=== PATIENT | female | born 1935 | race Caucasian/White ===

== ENCOUNTER 2017-05-20 10:09 | Inpatient (IN) | payer MEDICARE ==
[~2017-05-20] VITALS: Ht 157.5 cm; Wt 75.6 kg
[2017-05-20] MEDS ORDERED: METHYLPREDNISOLONE SOD SUCC 125MG/2ML VIAL ONE (10:26)
[2017-05-20 10:30] LABS: BASOPHILS % (AUTO) 0.4 % (0.0-5.0); EOSINOPHILS % (AUTO) 0.2 % (0.0-8.0); HEMATOCRIT 38.4 % (36-48); LYMPHOCYTES % (AUTO) 4.1 % (21.0-51.0); MEAN CORPUSCULAR HEMOGLOBIN 26.6 pg (27.0-33.0); MEAN CORPUSCULAR HGB CONC 32.6 g/dL (32.0-36.0); MEAN CORPUSCULAR VOLUME 81.8 fL (79-99); MONOCYTES % (AUTO) 7.4 % (3.0-13.0); NEUTROPHILS % (AUTO) 87.9 % (40.0-77.0); PLATELET COUNT (AUTO) 335 K/uL (130-400); RED BLOOD CELL COUNT(AUTO) 4.69 MIL/uL (4.00-5.50); RED CELL DISTRIBUTION WIDTH 14.8 % (11.0-15.5); WHITE BLOOD COUNT (AUTO) 10.6 K/uL (4.8-10.8)
[2017-05-20] MEDS ORDERED: IPRATROPIUM/ALBUTEROL SULFATE 3 ML SOLUTION IH ONE (10:35)
[2017-05-20 10:40] LABS: POTASSIUM 4.1 mmol/L (3.5-5.1)
[2017-05-20 10:45] LABS: BILIRUBIN,TOTAL 0.6 mg/dL (0.2-1.0); TOTAL PROTEIN, SERUM 7.6 g/dL (6.0-8.3)
[2017-05-20] MEDS ORDERED: AZITHROMYCIN 500MG+NS 250ML 250 ML IV ONE (11:18)
[2017-05-20] MEDS ORDERED: CEFTRIAXONE SODIUM 1 GM ONE (11:19)
[2017-05-20 11:27] LABS: INR 1.09 (0.85-1.15); PROTHROMBIN TIME 11.4 SEC (9.6-11.6)
[2017-05-20 12:32] LABS: ABG BASE EXCESS -0.4 mmol/L (-2.0-3.0); ABG HCO3 25.3 mmol/L (21.0-28.0); ABG OXYGEN SATURATION 95.2 % (95.0-99.0); ABG PCO2 45 mmHg (32-45)
[2017-05-20 16:05] VITALS: BP 132/60
[2017-05-20] MEDS ORDERED: POTASSIUM CHLORIDE 10% ELIXIR 20 MEQ/15 ML UDCUP PO PRN (17:45)
[2017-05-20] MEDS ORDERED: POTASSIUM CHLORIDE 20 MEQ ERTAB PO PRN (17:45)
[2017-05-20] MEDS ORDERED: POTASSIUM CHLORIDE 20MEQ/100ML 100 ML IV PRN (17:45)
[2017-05-20] MEDS ORDERED: LIDOCAINE HCL-MPF 1% 2ML VIAL IVP PRN (17:45)
[2017-05-20] MEDS ORDERED: AZTREONAM 1 GM in SODIUM CHLORIDE 0.9% 50 ML IV SCH (17:45)
[2017-05-20 18:41] VITALS: BP 120/58
[2017-05-20 18:51] VITALS: BP 136/63
[2017-05-20] MEDS ORDERED: PHARMACY COMMUNICATION MISC SCH (19:15)
[2017-05-20 19:25] VITALS: BP 115/55
[2017-05-20] MEDS: IPRATROPIUM/ALBUTEROL SULFATE 3 ML SOLUTION IH SCH ×2 (20:38→23:38)
[2017-05-20] MEDS ORDERED: SODIUM CHLORIDE 0.9% 250 ML IV ONE (21:35)
[2017-05-20] MEDS: METHYLPREDNISOLONE SOD SUCC 40MG/ML 1ML IVP SCH (22:02)
[2017-05-20] MEDS: OSELTAMIVIR PHOSPHATE 75 MG CAP PO SCH (22:03)
[2017-05-20] MEDS: AZTREONAM 1 GM VIAL IVP SCH (22:04)
[2017-05-20] MEDS: INSULIN HUMULIN R 100 UNIT/ML 3ML SQ SCH (22:17)
[2017-05-20] MEDS: DOXYCYCLINE 100MG+NS 250ML 250 ML IV SCH (23:03)
[2017-05-20 23:53] VITALS: BP 123/60
[2017-05-21 03:44] VITALS: BP 120/62
[2017-05-21 04:03] LABS: HEMATOCRIT 33.2 % (36-48); MEAN CORPUSCULAR HEMOGLOBIN 26.4 pg (27.0-33.0); MEAN CORPUSCULAR VOLUME 80.1 fL (79-99); PLATELET COUNT (AUTO) 318 K/uL (130-400); RED BLOOD CELL COUNT(AUTO) 4.15 MIL/uL (4.00-5.50); RED CELL DISTRIBUTION WIDTH 14.8 % (11.0-15.5); WHITE BLOOD COUNT (AUTO) 11.1 K/uL (4.8-10.8)
[2017-05-21 04:03] LABS: ABG BASE EXCESS 1.9 mmol/L (-2.0-3.0); ABG HCO3 28.5 mmol/L (21.0-28.0); ABG PCO2 52 mmHg (32-45)
[2017-05-21 04:17] LABS: CREATININE 1.1 mg/dL (0.5-1.5); MAGNESIUM 2.1 mg/dL (1.80-2.40); PHOSPHORUS 2.8 mg/dL (2.5-4.9); POTASSIUM 3.5 mmol/L (3.5-5.1)
[2017-05-21] MEDS: METHYLPREDNISOLONE SOD SUCC 40MG/ML 1ML IVP SCH ×3 (05:37→20:05)
[2017-05-21] MEDS: IPRATROPIUM/ALBUTEROL SULFATE 3 ML SOLUTION IH SCH ×4 (05:57→23:49)
[2017-05-21] MEDS: INSULIN HUMULIN R 100 UNIT/ML 3ML SQ SCH ×4 (06:15→21:53)
[2017-05-21] MEDS ORDERED: POTASSIUM CHLORIDE 10 MEQ/TAB.SA PO ONE ×2 (06:32→06:33)
[2017-05-21 07:00] VITALS: BP 133/70
[2017-05-21] MEDS: AZTREONAM 1 GM VIAL IVP SCH ×2 (09:17→20:05)
[2017-05-21] MEDS: DOXYCYCLINE 100MG+NS 250ML 250 ML IV SCH ×2 (09:17→20:05)
[2017-05-21] MEDS: OSELTAMIVIR PHOSPHATE 75 MG CAP PO SCH ×2 (09:17→20:05)
[2017-05-21] MEDS: FAMOTIDINE 20MG TAB 20 MG TAB PO SCH (09:17)
[2017-05-21] MEDS: ENOXAPARIN SODIUM 30 MG/0.3 ML SQ SCH (09:18)
[2017-05-21 11:00] VITALS: BP 132/68
[2017-05-21] MEDS ORDERED: CEFTRIAXONE 1GM/D5W 50ML 50 ML IV SCH (11:00)
[2017-05-21] MEDS ORDERED: AZITHROMYCIN 500MG+NS 250ML 250 ML IV SCH (12:00)
[2017-05-21 16:00] VITALS: BP 127/70
[2017-05-21 19:24] VITALS: BP 145/71
[2017-05-21 23:30] VITALS: BP 120/59
[2017-05-22] VITALS (7 sets, daily range): BP systolic 110–169; BP diastolic 47–78
[2017-05-22] MEDS: METHYLPREDNISOLONE SOD SUCC 40MG/ML 1ML IVP SCH ×3 (05:12→20:28)
[2017-05-22] MEDS: IPRATROPIUM/ALBUTEROL SULFATE 3 ML SOLUTION IH SCH ×4 (06:03→23:50)
[2017-05-22] MEDS: INSULIN HUMULIN R 100 UNIT/ML 3ML SQ SCH ×4 (06:40→21:00)
[2017-05-22] MEDS: DOXYCYCLINE 100MG+NS 250ML 250 ML IV SCH ×2 (09:34→20:27)
[2017-05-22] MEDS: OSELTAMIVIR PHOSPHATE 75 MG CAP PO SCH ×2 (09:34→20:28)
[2017-05-22] MEDS: AZTREONAM 1 GM VIAL IVP SCH ×2 (09:34→20:28)
[2017-05-22] MEDS: FAMOTIDINE 20MG TAB 20 MG TAB PO SCH (09:35)
[2017-05-22] MEDS: ENOXAPARIN SODIUM 30 MG/0.3 ML SQ SCH (09:35)
[2017-05-22] MEDS ORDERED: CETI10TA86 PO (16:28)
[2017-05-22] MEDS ORDERED: MAGN250T39 PO (16:28)
[2017-05-22] MEDS ORDERED: FLUT15.88 NS (16:28)
[2017-05-22] MEDS ORDERED: CHOL50004 PO (16:28)
[2017-05-22] MEDS ORDERED: PRED20TA3 PO (16:28)
[2017-05-22] MEDS ORDERED: METF-526 PO (16:28)
[2017-05-22] MEDS ORDERED: UBID100C45 PO (16:28)
[2017-05-22] MEDS ORDERED: HYDRALAZINE HCL 20 MG/ML VIAL IV PRN (22:45)
[2017-05-23 03:30] VITALS: BP 153/70
[2017-05-23] MEDS: INSULIN HUMULIN R 100 UNIT/ML 3ML SQ SCH ×3 (06:28→18:28)
[2017-05-23] MEDS: METHYLPREDNISOLONE SOD SUCC 40MG/ML 1ML IVP SCH ×2 (06:30→12:40)
[2017-05-23] MEDS: IPRATROPIUM/ALBUTEROL SULFATE 3 ML SOLUTION IH SCH ×4 (06:42→23:39)
[2017-05-23 07:00] VITALS: BP 151/73
[2017-05-23] MEDS: FAMOTIDINE 20MG TAB 20 MG TAB PO SCH (08:24)
[2017-05-23] MEDS: ENOXAPARIN SODIUM 30 MG/0.3 ML SQ SCH (08:24)
[2017-05-23] MEDS: OSELTAMIVIR PHOSPHATE 75 MG CAP PO SCH (08:24)
[2017-05-23] MEDS: DOXYCYCLINE 100MG+NS 250ML 250 ML IV SCH (08:24)
[2017-05-23] MEDS: AZTREONAM 1 GM VIAL IVP SCH (08:24)
[2017-05-23 11:44] VITALS: BP 161/84
[2017-05-23 16:00] VITALS: BP 163/89
[2017-05-23 20:00] VITALS: BP 164/84
[2017-05-23 23:52] VITALS: BP 152/77
[2017-05-24 04:00] VITALS: BP 160/84
[2017-05-24] MEDS: DOXYCYCLINE 100MG+NS 250ML 250 ML IV SCH ×2 (05:23→08:39)
[2017-05-24] MEDS: METHYLPREDNISOLONE SOD SUCC 40MG/ML 1ML IVP SCH ×2 (05:24→05:56)
[2017-05-24] MEDS: OSELTAMIVIR PHOSPHATE 75 MG CAP PO SCH ×3 (05:24→20:38)
[2017-05-24] MEDS: AZTREONAM 1 GM VIAL IVP SCH ×2 (05:24→08:56)
[2017-05-24] MEDS: INSULIN HUMULIN R 100 UNIT/ML 3ML SQ SCH ×5 (05:31→21:09)
[2017-05-24] MEDS: IPRATROPIUM/ALBUTEROL SULFATE 3 ML SOLUTION IH SCH ×3 (06:12→17:12)
[2017-05-24] MEDS ORDERED: BENZOCAINE/MENTH/CETYLPYRD CL 1 EACH LOZENGE MM PRN (06:45)
[2017-05-24 07:05] VITALS: BP 154/79
[2017-05-24] MEDS: FAMOTIDINE 20MG TAB 20 MG TAB PO SCH (08:39)
[2017-05-24] MEDS: ENOXAPARIN SODIUM 30 MG/0.3 ML SQ SCH (08:39)
[2017-05-24] MEDS ORDERED: PREDNISONE 10 MG TABLET PO SCH (10:45)
[2017-05-24] MEDS ORDERED: DOXYCYCLINE HYCLATE 100 MG TABLET PO SCH (10:45)
[2017-05-24 11:35] VITALS: BP 175/82
[2017-05-24] MEDS: ALBUTEROL SULFATE 0.083% 2.5 MG/3 ML INH IH SCH (11:42)
[2017-05-24] MEDS: IPRATROPIUM 0.5 MG/2.5 ML INH IH SCH ×2 (11:42→17:13)
[2017-05-24 16:14] VITALS: BP 168/90
[2017-05-24] MEDS: BUDESONIDE 0.5 MG/2 ML INH IH SCH (17:12)
[2017-05-24 19:35] VITALS: BP 167/82
[2017-05-24] MEDS: DOXYCYCLINE HYCLATE 100 MG TABLET PO SCH (20:38)
[2017-05-24 23:22] VITALS: BP 153/80
[2017-05-25] MEDS: IPRATROPIUM/ALBUTEROL SULFATE 3 ML SOLUTION IH SCH ×5 (00:33→23:18)
[2017-05-25 03:34] LABS: BASOPHILS % (AUTO) 0.1 % (0.0-5.0); EOSINOPHILS % (AUTO) 0.2 % (0.0-8.0); HEMATOCRIT 34.4 % (36-48); LYMPHOCYTES % (AUTO) 10.4 % (21.0-51.0); MEAN CORPUSCULAR HEMOGLOBIN 27.1 pg (27.0-33.0); MEAN CORPUSCULAR HGB CONC 33.4 g/dL (32.0-36.0); MEAN CORPUSCULAR VOLUME 81.3 fL (79-99); MONOCYTES % (AUTO) 10.4 % (3.0-13.0); NEUTROPHILS % (AUTO) 78.9 % (40.0-77.0); PLATELET COUNT (AUTO) 308 K/uL (130-400); RED BLOOD CELL COUNT(AUTO) 4.23 MIL/uL (4.00-5.50); RED CELL DISTRIBUTION WIDTH 15.1 % (11.0-15.5); WHITE BLOOD COUNT (AUTO) 9.4 K/uL (4.8-10.8)
[2017-05-25 03:40] LABS: CREATININE 0.7 mg/dL (0.5-1.5); POTASSIUM 3.7 mmol/L (3.5-5.1)
[2017-05-25 04:00] VITALS: BP 161/82
[2017-05-25] MEDS: INSULIN HUMULIN R 100 UNIT/ML 3ML SQ SCH ×4 (05:47→20:13)
[2017-05-25] MEDS: ALBUTEROL SULFATE 0.083% 2.5 MG/3 ML INH IH SCH ×3 (06:00→17:25)
[2017-05-25] MEDS: IPRATROPIUM 0.5 MG/2.5 ML INH IH SCH ×3 (06:00→17:25)
[2017-05-25] MEDS: BUDESONIDE 0.5 MG/2 ML INH IH SCH ×2 (06:26→17:23)
[2017-05-25 07:13] VITALS: BP 145/77
[2017-05-25] MEDS: FAMOTIDINE 20MG TAB 20 MG TAB PO SCH (09:57)
[2017-05-25] MEDS: PREDNISONE 10 MG TABLET PO SCH (09:58)
[2017-05-25] MEDS: OSELTAMIVIR PHOSPHATE 75 MG CAP PO SCH (09:58)
[2017-05-25] MEDS: DOXYCYCLINE HYCLATE 100 MG TABLET PO SCH ×2 (09:58→20:12)
[2017-05-25] MEDS: ENOXAPARIN SODIUM 30 MG/0.3 ML SQ SCH (09:58)
[2017-05-25 11:41] VITALS: BP 156/78
[2017-05-25 16:29] VITALS: BP 170/75
[2017-05-25] MEDS ORDERED: AMLO5TAB2 PO (17:22)
[2017-05-25] MEDS: AMLODIPINE BESYLATE 5 MG TAB PO SCH (17:53)
[2017-05-25] MEDS ORDERED: BENZ-51 PO (18:46)
[2017-05-25 20:00] VITALS: BP 138/81
[2017-05-26 00:28] VITALS: BP 148/79
[2017-05-26 04:00] VITALS: BP 126/69
[2017-05-26] MEDS: IPRATROPIUM/ALBUTEROL SULFATE 3 ML SOLUTION IH SCH ×2 (05:54→11:14)
[2017-05-26] MEDS: BUDESONIDE 0.5 MG/2 ML INH IH SCH (05:54)
[2017-05-26] MEDS: INSULIN HUMULIN R 100 UNIT/ML 3ML SQ SCH ×3 (07:30→17:07)
[2017-05-26 07:53] VITALS: BP 153/80
[2017-05-26] MEDS: ENOXAPARIN SODIUM 30 MG/0.3 ML SQ SCH (07:54)
[2017-05-26] MEDS: PREDNISONE 10 MG TABLET PO SCH (07:54)
[2017-05-26] MEDS: FAMOTIDINE 20MG TAB 20 MG TAB PO SCH (07:54)
[2017-05-26] MEDS: DOXYCYCLINE HYCLATE 100 MG TABLET PO SCH (07:54)
[2017-05-26] MEDS: AMLODIPINE BESYLATE 5 MG TAB PO SCH (07:54)
[2017-05-26 11:29] VITALS: BP 152/71
[2017-05-26 16:00] VITALS: BP 143/76
== END 2017-05-26 17:55 | disposition home or self-care (01) | DRG 189 ==
LOC: EDH 10:09 → EDHIP 13:30 → 2DH 16:08
PROVIDERS: ADMIT Family Medicine; ATTEND Family Medicine
PROC: 5A09357 Assistance with Respiratory Ventilation, Less than 24 Consecutive Hours, Continuous Positive Airway Pressure (ICD-10-PCS; principal; 2017-05-20)
DX: J96.21 Acute and chronic respiratory failure with hypoxia (principal); D89.9 Disorder involving the immune mechanism, unspecified; E11.51 Type 2 diabetes mellitus with diabetic peripheral angiopathy without gangrene; J44.0 Chronic obstructive pulmonary disease with (acute) lower respiratory infection; B97.4 Respiratory syncytial virus as the cause of diseases classified elsewhere; J44.1 Chronic obstructive pulmonary disease with (acute) exacerbation; E78.5 Hyperlipidemia, unspecified; I10 Essential (primary) hypertension; J20.9 Acute bronchitis, unspecified; Z85.828 Personal history of other malignant neoplasm of skin; Z86.73 Personal history of transient ischemic attack (TIA), and cerebral infarction without residual deficits; Z87.891 Personal history of nicotine dependence; Z90.710 Acquired absence of both cervix and uterus; Z99.81 Dependence on supplemental oxygen; Z88.8 Allergy status to other drugs, medicaments and biological substances; Z88.2 Allergy status to sulfonamides; Z88.1 Allergy status to other antibiotic agents; Z88.0 Allergy status to penicillin; Z91.013 Allergy to seafood; Z82.0 Family history of epilepsy and other diseases of the nervous system; Z82.49 Family history of ischemic heart disease and other diseases of the circulatory system; Z84.89 Family history of other specified conditions
CPT/HCPCS: 36415; 36600; 71045; 71250; 80048; 80053; 82803; 82947; 82948; 83605; 83735; 84100; 84484; 85025; 85027; 85610; 85730; 87040; 87633; 87804; 93005; 94640; 94660; 94664; 94760; A4218; J0456; J0696; J1650; J1815; J2920; J2930; J3490; J7030; J7512